=== PATIENT | female | born 1950 | race Caucasian/White ===

== ENCOUNTER 2022-06-21 14:36 | Inpatient (IN) | payer MEDICARE, SELFPAY ==
[2022-06-21] VITALS (7 sets, daily range): BP systolic 148–169; BP diastolic 80–100; PULSE 67–92; RESP 14–36; TEMP 36.6–37.1; O2SAT 95–99; BMI 30.9; BMI 30.2
--- NOTE | 2022-06-21 15:10 | CT_ITS ---
STUDY: CT HEAD STROKE PROTOCOL W/O CONTRAST INJECTION REASON FOR EXAM: Female, 71 years old. Neuro deficit, acute, stroke suspected RADIATION DOSAGE (If Supplied By Facility): CTDIvol = ( 44.99 ) mGy, DLP = ( 711.75 ) mGycm TECHNIQUE: Transaxial CT imaging of the brain was performed without administration of intravenous contrast material. Individualized dose optimization techniques were used for this CT. COMPARISON: No relevant priors. FINDINGS: Normal soft tissue structures. Normal calvarium. There is mild cerebral atrophy with widening of the extra-axial spaces and ventricular dilatation. Focal area of decreased attenuation in the posterior medial aspect of the right occipital lobe suggestive of acute ischemic change. Normal basal ganglia and thalami. Normal brainstem. Normal cerebellum. There is no intracranial hemorrhage. There are no findings of an acute ischemic infarction. Atherosclerotic calcification of the cavernous portions of the internal carotid arteries bilaterally. Normal visualized paranasal sinuses. ASPECT score: 10 CT/STROKE Brain/Head without Cont IMPRESSION: Focal area of decreased attenuation in the posterior medial segment of the right occipital lobe. N.B. : The above Results were Read Back by Zachariah Kaye MD to [facility] and understanding confirmed on 06/21/2022 15:42:53 (ET). Electronically Signed: Zachariah Kaye MD at 15:44 EST ,
--- NOTE | 2022-06-21 15:12 | EX.ED.UPPERE ---
HPI History of Present Illness Chief Complaint: Upper Extremity Injury Detail of Chief Complaint: numbness LUE and difficulty walking Informant: patient and family Limited: dementia and other (Patient is not able to read) Occured/Mechanism Comment: Stroke like symptoms Onset/Context/Timing Onset: Hours Context: Sudden Onset Timing: Intermittent Quality of Pain: - (nunbness left side face and LUE) Location: Left Current Severity: Mild Maximum Severity: Moderate Worsened by: Nothng Relieved by: Nothing Associated Symptoms Associated Symptoms: Positive for Parasthesia and Weakness Narrative Narrative: Patient is 71 year old women who has a cognitive impairment and not able to read. Patient denies trauma. Her CC is numbness left side of her face and LUE. She reportedly had weakness LLE and Dragging her leg. Tetanus Immunization: Unknown Prior similar symptoms: No Recent Illness/Hospitalization: No PFSH PFS Medical History (Updated 06/21/22 @ 15:[address] Pj Doyle MD) GERD (gastroesophageal reflux disease) Hypertension Lupus Obesity Medical History unable to obtain unable to obtain Home Medications cholecalciferol (vitamin D3) 25 mcg (1,000 unit) capsule (Vitamin D3) 1,000 unit PO DAILY 12/05/16 [History Last Taken Unknown] dextromethorphan polistirex 30 mg/5 mL oral susp ext.release 12hr (Delsym 12 hour) 60 mg PO BID 12/05/16 [History Last Taken Unknown] diphenhydramine HCl 25 mg capsule (Banophen) 25 mg PO TID PRN ALLERGY ##15 12/05/16 [Rx Last Taken Unknown] famotidine 20 mg tablet 20 mg PO BID ALLERGIC ##10 12/05/16 [Rx Last Taken Unknown] flaxseed oil 1,000 mg capsule ([place]-3 Flaxseed Oil) 1,000 mg PO DAILY 12/05/16 [History Last Taken Unknown] fluticasone propionate 50 mcg/actuation nasal spray,suspension 2 spray DAILY 12/05/16 [History Last Taken Unknown] losartan 25 mg tablet 25 mg PO DAILY 12/05/16 [History Last Taken Unknown] minocycline 50 mg capsule 50 mg PO DAILY PRN ROSACEA 12/05/16 [History Last Taken Unknown] multivitamin,fo-etcb-jfkjgmbo 27 mg-0.4 mg tablet (Therems-M) 1 tab PO DAILY 12/05/16 [History Last Taken Unknown] omega-3 acid ethyl esters 1 gram capsule 1 g PO BID 12/05/16 [History Last Taken Unknown] Allergy/AdvReac Type Severity Reaction Status Date / Time pneumococcal vaccine Allergy REDNESS, Verified 12/05/16 18:57 [From Pneumovax 23] PAIN, AND SWELLING Family History unable to obtain unable to obtain Surgical History (Updated 06/21/22 @ 15:[address] Yolande Miranda MD) Hx of cholecystectomy Surgical History unable to obtain unable to obtain Social History (Updated 06/21/22 @ 15:[address] Yolande Miranda MD) household members: family Smoking Status: Never smoker alcohol intake: never substance use type: does not use ROS ROS ED Review of Systems ROS Unobtainable: due to mental status Neurologic Neurologic: Reports paresthesias, weakness and other Details: difficulty walking. EXAM Physical Exam Const Vital Signs: 06/21/22 14:38 Temperature 98.1 F Temperature Source Temporal Pulse Rate 92 Respiratory Rate 14 Blood Pressure 162/97 H Blood Pressure Mean 118 Pulse Ox 99 Oxygen Delivery Method Room Air Positive well nourished, well developed and obese General Appearance ED: well developed and NAD Nutritional Appearance: obese HEENT Reports moist mucous membranes normocephalic and atraumatic Eyes PERRL and EOMs intact bilaterally Neck full ROM and supple Resp normal respiratory effort and clear to auscultation bilaterally Cardio regular rate, regular rhythm, S1 normal heart sound, S2 normal heart sound and no murmurs GI non-tender, non-distended and no masses Palpation: soft Back/Spine no CVA tenderness Cervical Spine: Negative for cervical spine tenderness Thoracic Spine / Upper Back: Negative for thoracic spinal tenderness Lumbar Spine / Lower Back: Negative for lumbar spinal tenderness Extremity normal to inspection and full ROM Neuro No oriented x3, No CN's II-XII intact bilaterally, moves all extremities, No no focal motor deficits and no sensory deficits noted Sensorium / Orientation: alert, oriented to person, oriented to place and oriented to time Motor Exam: Negative for strength 5/5 throughout Psych mental status grossly normal Skin General Skin Exam: Negative for petechiae Lesions: no lesions Rashes: no rashes MDM MDM MDM Narrative Medical decision making narrative: Patient with TIA/Stroke like symptoms. NIH if 3, Does not know age, slight facial droop left and weakness LLE. Concern and has visual field defect because when she read the chart she would turn her head to the left and look towards the right to determine what was occurring in the field and for her to identify the objects. Attempt at confrontation was difficult because patient would look to the side my finger was on. She did this more when my fingers were on the left side. My belief is she has a left homonymous hemianopsia. Stroke order set was initiated. I received a call from the radiologist that reveals that she has an inferior posterior medial right occipital stroke. In light of this information the hospitalist been paged for admission. Lab Data Attestation: I reviewed the patient's lab results. Lab results narrative: CBC, BMP, coags are unremarkable. Radiography Diagnostic Testin view chest x-ray was independently reviewed and interpreted by me at 1550 as negative. Cardiac silhouette size normal. Lung parenchyma normal. Perihilar region normal. Osseous structures are unremarkable. EKG Initial EKG: Attestation: I personally reviewed and interpreted this EKG as follows: Interpretation: Sinus Rhythm (Ventricle rate is 84. [place] intervals 172 ms. QS duration 84 ms. QT durations are 70 ms. [place] is to the left. There is a left anterior fascicular block noted.) Discharge Plan Dx/Rx/DC Orders Clinical Impression: Left homonymous hemianopsia, Transient weakness of left lower extremity, TIA (transient ischemic attack), History of hypertension Disposition Disposition: Acute Care Hospital [facility] Capacity Capacity Assessment Tool Can the patient make a choice & communicate that choice?: No Can the patient understand benefits, risks and alternatives?: Unable to Determine Can the patient make a logical, rational choice?: Unable to Determine Is the choice the patient makes consistent w/ their values?: Comment (Patient is willing to stay. She her sister is confused why she needs to be admitted.) Is there an impending, emergent risk to the patient?: Yes Does the patient have an Advance Directive?: No Is there a Surrogate Available?: Yes (Surrogate does not understand and comprehend need for admission) i.e. HCPOA: No i.e. close relative (spouse, child, parent, sibling)?: Yes (Lives with her sister who in my opinion does not have capacity either)
[2022-06-21 15:23] LABS: Absolute Lymphocyte Count 1.31 X10^3/uL (0.83-4.51); Absolute Neutrophil Count 3.5 X10^3/uL (2.0-7.7); Basophil# 0.04 X10^3/uL; Basophil% 0.7 % (0-1); Eosinophil# 0.04 X10^3/uL; Eosinophils% 0.7 % (0-5); Hematocrit 41.8 % (37-47); Hemoglobin 14.1 g/dL (12.0-15.0); Lymphocyte # 1.31 X10^3/ul (0.83-4.51); Lymphocyte % 23.8 % (19-41); Mean Corp Hgb Conc 33.7 g/dL (32-36); Mean Corpuscular Volume 88.9 fL (81-99); Mean Platelet Vol. 10.2 fl (6.2-12.0); Monocyte# 0.61 X10^3/uL; Monocyte% 11.1 % (0-10); NRBC Flagged by Analyzer 0 % (0-5); Neutrophil # 3.46 X10^3/uL (2.7-7.7); Platelet Count 192 K/mm3 (150-450); RBC Distribution Width CV 12.7 % (11.6-14.6); RBC Distribution Width SD 41.4 fl (35.1-43.9); White Blood Count 5.5 K/mm3 (4.4-11.0)
[2022-06-21 15:32] LABS: Prothrombin Time (Protime)PT. 12.8 SECONDS (11.7-14.9)
[2022-06-21 15:33] LABS: Partial Thromboplast Time 26.3 Seconds (24.1-36.2)
[2022-06-21 15:35] LABS: Bedside Glucose 102 mg/dL (74-106)
--- NOTE | 2022-06-21 15:35 | RAD_ITS ---
STUDY: X-RAY CHEST REASON FOR EXAM: Female, 71 years old. Neuro deficit, acute, stroke suspected TECHNIQUE: Single AP portable view of the chest. COMPARISON: None. FINDINGS: EKG electrodes are seen. The lungs are clear and expanded. There is no demonstrated pleural abnormality. Normal size heart. Normal mediastinum and agustín. Normal visualized pulmonary arteries. There is atherosclerotic tortuosity of the aortic arch and descending thoracic aorta. Normal visualized thoracic spine. Normal visualized ribs, clavicles, and shoulders. There is no demonstrated abnormality of the visualized soft tissue structures of the upper abdomen. RAD/Chest 1 View IMPRESSION: No acute abnormality is seen. Electronically Signed: Zachariah Kaye MD at 15:45 EST ,
[2022-06-21 15:42] LABS: Anion Gap 7 (5-15); BUN 17 mg/dL (7-18); BUN/Creat Ratio 22.4 RATIO (10-20); Calcium,Total 9.5 mg/dL (8.5-10.1); Chloride 106 mmol/L (98-107); Creatinine, Serum 0.76 mg/dL (0.55-1.02); EST Glomerular Filtration Rate 80 mL/min (>60); Est Glom Filt Rate - Afr Amer 97 mL/min (>60); Glucose 117 mg/dL (74-106); Sodium Level 137 mmol/L (136-145); Troponin-I HS 7 pg/mL (3.0-54.0)
--- NOTE | 2022-06-21 15:55 | HP.PCM.HOS_ITS ---
HPI - General General Date of Admission: 06/21/22 Date of Service: 06/21/22 Chief Complaint: L sided weakness, paresthesias. HPI Narrative The patient is a 71 y/o F w/ PMHx: GERD, HTN, SLE, Obesity, Cognitive impairment with questionable underlying dementia, inability to read of note who presents to the [facility] ED on 06/21/22 with history of onset of left-sided numbness including her face and left upper extremity as well as left lower extremity weakness reportedly dragging her leg starting at 11:30 am per report but family and patient are both poor historians. Initial NIH stroke scale per ED physician report is a 3 as she does not know her age and demonstrates a slight facial left-sided droop as well as left lower extremity weakness. Work-up in the ED included T98.1, heart rate 92, BP 162/97, respiratory rate 14, 99% on room air, CBC with WC 5.5, hemoglobin 14.1, platelet 192 without marked shift, unremarkable coags, BMP unremarkable aside glucose 117, troponin 7, CT brain with an area of focal decreased attenuation in the posterior medial segment of the right occipital lobe, chest x-ray with no acute cardiopulmonary findings, EKG SR. [facility] Medical History (Updated 06/21/22 @ 16:[address] Yolande Miranda MD) Allergic rhinitis GERD (gastroesophageal reflux disease) Hypertension Lupus Obesity Medical History unable to obtain Home Medications cholecalciferol (vitamin D3) 25 mcg (1,000 unit) capsule (Vitamin D3) 1,000 unit PO DAILY 12/05/16 [History Last Taken Unknown] dextromethorphan polistirex 30 mg/5 mL oral susp ext.release 12hr (Delsym 12 hour) 60 mg PO BID 12/05/16 [History Last Taken Unknown] diphenhydramine HCl 25 mg capsule (Banophen) 25 mg PO TID PRN ALLERGY ##15 12/05/16 [Rx Last Taken Unknown] famotidine 20 mg tablet 20 mg PO BID ALLERGIC ##10 12/05/16 [Rx Last Taken Unknown] flaxseed oil 1,000 mg capsule ([place]-3 Flaxseed Oil) 1,000 mg PO DAILY 12/05/16 [History Last Taken Unknown] fluticasone propionate 50 mcg/actuation nasal spray,suspension 2 spray DAILY 12/05/16 [History Last Taken Unknown] losartan 25 mg tablet 25 mg PO DAILY 12/05/16 [History Last Taken Unknown] minocycline 50 mg capsule 50 mg PO DAILY PRN ROSACEA 12/05/16 [History Last Taken Unknown] multivitamin,om-hbyd-jnjrlroy 27 mg-0.4 mg tablet (Therems-M) 1 tab PO DAILY 12/05/16 [History Last Taken Unknown] omega-3 acid ethyl esters 1 gram capsule 1 g PO BID 12/05/16 [History Last Taken Unknown] Allergy/AdvReac Type Severity Reaction Status Date / Time pneumococcal vaccine Allergy REDNESS, Verified 12/05/16 18:57 [From Pneumovax 23] PAIN, AND SWELLING Family History (Updated 06/21/22 @ 16:[address] Yolande Miranda MD) Mother Diabetes Father Heart disease Brother CVA (cerebral vascular accident) CVA age 77. Family History unable to obtain Surgical History (Updated 06/21/22 @ 15:[address] Yolande Miranda MD) Hx of cholecystectomy Surgical History unable to obtain Social History (Updated 06/21/22 @ 15:[address] Yolande Miranda MD) household members: family Smoking Status: Never smoker alcohol intake: never substance use type: does not use ROS ROS Narrative Admission Review of Systems: CONSTITUTIONAL: No weight loss, fever, chills, + weakness or fatigue. HEENT: Eyes: + Suspected left-sided homonymous hemianopsia, chronic inability to read from youth. Ears, Nose, Throat: No hearing loss, sneezing, congestion, runny nose or sore throat. SKIN: No rash or itching, lesions, wounds. CARDIOVASCULAR: No chest pain, chest pressure or chest discomfort, palpitations, edema, orthopnea, syncopal events. RESPIRATORY: No shortness of breath, cough or sputum, wheezing, hemoptysis. GASTROINTESTINAL: No anorexia, nausea, vomiting or diarrhea, abdominal pain, melena, BRBPR. GENITOURINARY: No dysuria, frequency, urgency or retention. NEUROLOGICAL: + Left-sided facial paresthesias, left upper extremity paresthesias, left lower extremity weakness, suspected left-sided homonymous hemianopsia, no headache, dizziness, syncope, paralysis, ataxia, change in bowel or bladder control, seizure. MUSCULOSKELETAL: No muscle, back pain, joint pain or stiffness. HEMATOLOGIC: No anemia, bleeding or bruising. LYMPHATICS: No enlarged nodes. No history of splenectomy. PSYCHIATRIC: + history of depression or anxiety. ENDOCRINOLOGIC: No reports of sweating, cold or heat intolerance. No polyuria or polydipsia. ALLERGIES: + history of rhinitis. Vital Signs Vital Signs Vital Signs: 06/21/22 14:38 06/21/22 15:18 06/21/22 15:18 Temperature 98.1 F Temperature Source Temporal Pulse Rate 92 83 Respiratory Rate 14 36 H Blood Pressure 162/97 H 162/95 H Blood Pressure Mean 118 117 Pulse Ox 99 95 Oxygen Delivery Method Room Air Room Air Room Air Weight Weight: 191 lb 11.2 oz Body Mass Index (BMI) 30.9 Physical Exam Narrative Physical Examination: General: Awake, alert, oriented to self, place and some events, chronic cognitive impairment, cooperative, seated upright in the ED bed in no apparent distress. Skin: Normal color, normal turgor, no icterus, no cyanosis. HEENT: AT/NC, PERRLA, MMM, no carotid bruits or JVD noted, difficulty with EO M/moves head almost to support, suspect left-sided homonymous hemianopsia. Lungs: CTA bilaterally, moderate effort, mild decrease BL bases, no rales, ronchi or wheezing. Heart: Regular rate and rhythm; no gallop, rub audible. Abdomen: Soft, obese, NTTP, ND, mildly hyperactive BS, no HSM. Extremities: No cyanosis, no clubbing, mild BL ankle nonpitting edema. Neurological: Patient awake, alert, oriented as noted, cognitive function decreased baseline with underlying cognitive impairment but do suspect she is near her baseline at least from discussion with family; pupils equally reactive to light and accommodation, cranial nerves grossly normal except difficulty with EOM/moves head almost to support, suspect left-sided homonymous hemianopsia, in addition patient reported improvement of prior reported initial paresthesias to the face and left upper extremity, moving all extremities except still has ongoing left lower extremity weakness, L sided difficulties with FTN and HTS, R side intact, equivocal babinski. Psychiatric: Affect appears normal, no acute evidence of depressive or anxiety feelings. Results Lab / Micro Data Result Diagrams: 06/21/22 15:10 06/21/22 15:10 Labs: Laboratory Results - last 24 hr 06/21/22 15:10: WBC 5.5, RBC 4.70, Hgb 14.1, Hct 41.8, MCV 88.9, MCH 30.0, MCHC 33.7, RDW Std Deviation 41.4, RDW Coeff of Mayra 12.7, Plt Count 192, MPV 10.2, Immature Gran % (Auto) 0.700, Neut % (Auto) 63.0, Lymph % (Auto) 23.8, [place] % (Auto) 11.1 H, Eos % (Auto) 0.7, Baso % (Auto) 0.7, Absolute Neuts (auto) 3.5, Absolute Lymphs (auto) 1.31, Nucleated RBC % 0 06/21/22 15:10: PT 12.8, INR 1.0, APTT 26.3 06/21/22 15:10: Sodium 137, Potassium 4.0, Chloride 106, Carbon Dioxide 24.0, Anion Gap 7, BUN 17, Creatinine 0.76, Estim Creat Clear Calc 48.30, Est GFR (MDRD) Af Amer 97, Est GFR (MDRD) Non-Af 80, BUN/Creatinine Ratio 22.4 H, Glucose 117 H, Calcium 9.5, Troponin I High Sens 7 06/21/22 15:16: POC Glucose [address] 06/21/22 15:10 IMPRESSION: Focal area of decreased attenuation in the posterior medial segment of the right occipital lobe. N.B. : The above Results were Read Back by Zachariah Kaye MD to [facility] and understanding confirmed on 06/21/2022 15:42:53 (ET). Electronically Signed: Zachariah Kaye MD at 15:44 EST , ADDENDUM: 06/21/22 1553 IMPRESSION: Focal area of decreased attenuation in the posterior medial segment of the right occipital lobe. N.B. : The above Results were Read Back by Zachariah Kaye MD to [facility] and understanding confirmed on 06/21/2022 15:42:53 (ET). Electronically Signed: Zachariah Kaye MD at 15:44 EST , Chest X-Ray 06/21/22 15:35 IMPRESSION: No acute abnormality is seen. Electronically Signed: Zachariah Kaye MD at 15:45 EST , Assessment & Plan Assessment/Plan (1) CVA (cerebral vascular accident): PLAN: Plan The patient is a 71 y/o F w/ PMHx: GERD, HTN, SLE, Obesity, Cognitive impairment with questionable underlying dementia, inability to read of note who presents to the [facility] ED on 06/21/22 with history of onset of left-sided numbness including her face and left upper extremity as well as left lower extremity weakness reportedly dragging her leg. Initial NIH stroke scale per ED physician report is a 3 as she does not know her age and demonstrates a slight facial left-sided droop as well as left lower extremity weakness. #1. Left-sided paresthesias, L suspected homonymous hemianopsia, LLE weakness with CT changes with Acute posterior medial segment right occipital lobe CVA: Will admit to PCU, will obtain MRI Brain, CTA Head and Neck, ECHO, PT/OT/Speech/Nutrition evaluation per protocol. Will allow permissive HTN, maintain on asa, add at least moderate dose statin w/ AM FLP, fall precautions. Magnesium, TSH, FLP, hemoglobin A1c requested. Once further imaging and work-up is obtained may consider neurology evaluation. #2. Cognitive impairment with questionable underlying dementia, unclear type with unclear behavioral disturbance history: Reported history of chronic impairment, inability to read of note, unclear extent to the outpatient evaluation, will maintain on fall and aspiration precautions, therapies as well as case management consulted as noted above. #3. Hypertension: Given acute presentation #1 we will maintain permissive hypertension with as needed stroke protocol as needed agents. #4. Obesity: Weight loss and lifestyle changes encouraged. #5. SLE: From current list not on any chronic regimen, encourage continued outpatient follow-up with rheumatology. #6. GERD: We will continue patient on famotidine. #7. DVT prophylaxis: SCDs, lovenox. Charges/Coding Visit Charges Inpatient E&M: 89800 Init Hosp L3
--- NOTE | 2022-06-21 16:02 | CT_ITS ---
EXAM: CT ANGIOGRAPHY HEAD AND NECK WITH INTRAVENOUS CONTRAST CLINICAL INDICATION: Neuro deficit, acute, stroke suspected TECHNIQUE: [place] of [place]/head and neck CT angiography protocol performed with intravenous contrast. This CT exam was performed using one or more of the following dose reduction techniques: automated exposure control, adjustment of the mA and/or kV according to patient size, and/or use of iterative reconstruction technique. This report was created using [employer] report generation technology. MIP reconstructed images were created and reviewed. CONTRAST: IV 100mL [id number] COMPARISON: None. FINDINGS: HEAD: Mild atherosclerotic calcification of the cavernous carotid arteries without stenosis. RIGHT ANTERIOR CEREBRAL ARTERY: Unremarkable. No significant stenosis at the visualized segments. Anterior communicating artery is present. No aneurysm. RIGHT MIDDLE CEREBRAL ARTERY: Unremarkable. No significant stenosis at the visualized segments. No aneurysm. RIGHT POSTERIOR CEREBRAL ARTERY: High-grade stenosis at the junction of the P1 and P2 segments of the right posterior cerebral artery, with reconstitution of the T3 segment. No aneurysm. RIGHT INTRACRANIAL INTERNAL CAROTID ARTERY: Unremarkable. No significant stenosis. No dissection or occlusion. RIGHT INTRACRANIAL VERTEBRAL ARTERY: Unremarkable. No significant stenosis. No dissection or occlusion. Posterior communicating arteries are not visualized. LEFT ANTERIOR CEREBRAL ARTERY: Unremarkable. No significant stenosis at the visualized segments. No aneurysm. LEFT MIDDLE CEREBRAL ARTERY: Unremarkable. No significant stenosis at the visualized segments. No aneurysm. LEFT POSTERIOR CEREBRAL ARTERY: Unremarkable. No occlusion or significant stenosis. No aneurysm. LEFT INTRACRANIAL INTERNAL CAROTID ARTERY: Unremarkable. No significant stenosis. No dissection or occlusion. LEFT INTRACRANIAL VERTEBRAL ARTERY: Unremarkable. No significant stenosis. No dissection or occlusion. 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 No dissection. OTHER VASCULATURE: No vascular malformation. NECK: RIGHT COMMON CAROTID ARTERY: Unremarkable. No significant stenosis. No dissection or occlusion. RIGHT EXTRACRANIAL INTERNAL CAROTID ARTERY: Unremarkable. No significant stenosis. No dissection or occlusion. RIGHT EXTERNAL CAROTID ARTERY: Unremarkable. No occlusion. RIGHT EXTRACRANIAL VERTEBRAL ARTERY: Unremarkable. No significant stenosis. No dissection or occlusion. LEFT COMMON CAROTID ARTERY: Unremarkable. No significant stenosis. No dissection or occlusion. LEFT EXTRACRANIAL INTERNAL CAROTID ARTERY: Unremarkable. No significant stenosis. No dissection or occlusion. LEFT EXTERNAL CAROTID ARTERY: Unremarkable. No occlusion. LEFT EXTRACRANIAL VERTEBRAL ARTERY: Unremarkable. No significant stenosis. No dissection or occlusion. GREAT VESSELS OF AORTIC ARCH: Unremarkable as visualized. Normal anatomy, patent. LUNG APICES: Unremarkable as visualized. HEAD and NECK: BONES/JOINTS: Unremarkable. No discrete lytic or blastic abnormalities. SOFT TISSUES: Unremarkable. CAROTID STENOSIS REFERENCE USING NASCET CRITERIA: % ICA stenosis = (1 - narrowest ICA diameter/diameter of distal cervical ICA) x 100. Mild - <50% stenosis. Moderate - 50-69% stenosis. Severe - 70-94% stenosis. Near occlusion - 95-99% stenosis. Occluded - 100% stenosis. CT/STROKE CTA Head AND Neck W/Con IMPRESSION: High-grade stenosis of the P1-P2 segment of the right JOURNEYMAN PRESSMAN. 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 Unremarkable CTA of the neck. N.B. : The above Results were Read Back by Sanam Swartz MD to Yolande Miranda MD, and understanding confirmed on 06/21/2022 17:02:19 (ET). Electronically Signed: Sanam Swartz MD at 16:55 EST Reading Location ID and State: [id number] / Tel , Service support ,
[2022-06-21 16:28] LABS: Magnesium 2.3 mg/dL (1.6-2.6)
--- NOTE | 2022-06-21 16:52 | MRI_ITS ---
EXAM: MR HEAD WITHOUT INTRAVENOUS CONTRAST CLINICAL INDICATION: CVA TECHNIQUE: Multiplanar and multisequence MR images of the brain were obtained without intravenous contrast. This report was created using [employer] report generation technology. COMPARISON: CT head 06/21/2022. FINDINGS: BRAIN AND EXTRA-AXIAL SPACES: No intracranial mass, mass effect, or midline shift. No hemorrhage or hydrocephalus. Restricted diffusion in the right occipital lobe consistent with acute infarct. Trace T2 signal hyperintensity in the left frontal deep white matter are consistent with microvascular ischemia. Mild ventriculomegaly is commensurate with the degree of sulcal atrophy. Basal cisterns are unremarkable. SELLA: Pituitary gland is normal in height. AUDITORY SYSTEM: Unremarkable. BONES/JOINTS: Unremarkable. SINUSES: Unremarkable as visualized. Clear. MASTOID AIR CELLS: T2 hyperintensity in the right mastoid sinus. ORBITS: Unremarkable as visualized. VASCULATURE: Normal flow voids in the major intracranial circulation. MRI/Brain without Contrast IMPRESSION: Acute right occipital infarct, previously reported. Minimal chronic microvascular ischemic change. Chronic right mastoid sinusitis. Electronically Signed: Sanam Swartz MD at 19:18 EST Reading Location ID and State: [id number] / Tel , Service support ,
--- NOTE | 2022-06-21 16:52 | ECHOCS_ITS ---
Reason For Study: CVA Procedure This was a 2D Doppler, Color Flow transthoracic echocardiogram. The study was technically difficult. Contrast injection was performed. Exam performed portable in patient room. Left Ventricle Normal LV size. Left ventricular systolic function is normal. The estimated ejection fraction is 70 %. No evidence for diastolic dysfunction. No regional wall motion abnormalities noted. Right Ventricle Normal RV size. Normal systolic function. Atria Normal left atrium. Normal right atrium. No doppler evidence for ASD. Bubble contrast study negative for right to left interatrial shunt. Mitral Valve There is no mitral annular calcification. Normal mitral valve. Trivial mitral valve insufficiency. Tricuspid Valve Normal tricuspid valve. Mild to moderate (1-2+) eccentric tricuspid valve insufficiency. Right ventricular systolic pressure estimated to be 36 mmHg. Aortic Valve Trisinus/trileaflet aortic valve. Normal aortic valve. Mild (1+) aortic valve insufficiency. Pulmonic Valve The pulmonic valve is not well visualized. Great Vessels Normal sized aortic root. Pericardium/Pleural No pericardial effusion. Medication Diluted definity 1ml given slow IV push to enhance endocardial definition. Performed a rapid injection of agitated mix of 9 cc saline and 1cc air to assess for atrial septal defect. MMode/2D Measurements & Calculations LVIDd: 4.0 cm IVSd: 0.97 cm LVOT diam: 2.0 cm LVIDs: 2.2 cm LVPWd: 0.99 cm RVDd: 3.2 cm FS: 45.2 % LVOT area: 3.0 cm2 Ao root diam: 3.2 cm LAV(MOD-bp): 40.8 ml LA A4 area: 17.6 cm2 LA dimension: 3.4 cm LAV(MOD-bp) Indexed: 21.0 ml/m2 LAV(MOD-sp2): 28.0 ml LAV(MOD-sp4): 47.2 ml RA A4 area: 15.5 cm2 Time Measurements MV dec time: 0.19 sec Doppler Measurements & Calculations MV E max kash: 65.1 cm/sec Lat Peak E' Kash: 9.8 cm/sec Med Peak E' Kash: 7.9 cm/sec MV A max kash: 94.3 cm/sec E/E' lat: 6.7 E/E' med: 8.2 MV E/A: 0.69 MV V2 max: 116.3 cm/sec MV P1/2t max kash: 83.7 cm/sec Ao V2 max: 142.8 cm/sec MV max P.4 mmHg MV P1/2t: 73.1 msec Ao max P.2 mmHg MV V2 mean: 59.4 cm/sec MV dec slope: 335.4 cm/sec2 Ao V2 mean: 97.5 cm/sec MV mean P.7 mmHg Ao mean P.2 mmHg MV V2 VTI: 26.1 cm MVA(P1/2t): 3.0 cm2 Ao V2 VTI: 27.5 cm MVA(VTI): 3.0 cm2 AV (velocity ratio): 0.93 CASE(I,D): 2.8 cm2 CASE(V,D): 2.7 cm2 AI max kash: 414.5 cm/sec LV V1 max: 125.5 cm/sec SV(LVOT): 77.5 ml AI max P.8 mmHg LV V1 max P.3 mmHg AI dec slope: 292.7 cm/sec2 LV V1 mean P.4 mmHg AI P1/2t: 414.9 msec LV V1 mean: 86.8 cm/sec LV V1 VTI: 25.6 cm PA V2 max: 114.5 cm/sec TR max kash: 287.1 cm/sec PA V2 mean: 76.5 cm/sec TR max P.0 mmHg ECHO/Echo Complete W/ Contrast Interpretation Summary The study was technically difficult. Contrast injection was performed. Left ventricular systolic function is normal. The estimated ejection fraction is 70 %. Trivial mitral valve insufficiency. Mild to moderate (1-2+) eccentric tricuspid valve insufficiency. Mild (1+) aortic valve insufficiency. Right ventricular systolic pressure estimated to be 36 mmHg. No evidence for diastolic dysfunction. Bubble contrast study negative for right to left interatrial shunt. Ordering Physician: Yolande Miranda Referring Physician: Apurva Read M.D. Performed By: Carlos Han RCS
--- NOTE | 2022-06-21 17:02 | TELEMED_ITS ---
SOC Telemed has confirmed receipt of a request for visit. This document confirms receipt of the order initiating the consult. To find the results of the consultation, please view the patient's reports for the scanned Telemed Consult.
[2022-06-21] MEDS: Aspirin 325 MG Tablet PO (17:34)
[2022-06-21] MEDS: 0.9% Saline Lock 10 ML Syringe IV (18:55)
[2022-06-21] MEDS: 0.9% Normal Saline 1,000 ML 100 ML IV (18:55)
[2022-06-21] MEDS: Famotidine 20 MG Tablet PO (20:40)
[2022-06-21] MEDS: Atorvastatin Calcium 80 MG Tablet PO (20:40)
[2022-06-22] VITALS (12 sets, daily range): BP systolic 148–165; BP diastolic 63–93; PULSE 67–101; RESP 16; TEMP 36.4–37.4; O2SAT 94–97; BMI 30.2
[2022-06-22] MEDS: 0.9% Normal Saline 1,000 ML 100 ML IV ×2 (05:51→16:30)
[2022-06-22 06:23] LABS: Absolute Lymphocyte Count 1.24 X10^3/uL (0.83-4.51); Absolute Neutrophil Count 2.8 X10^3/uL (2.0-7.7); Basophil# 0.03 X10^3/uL; Basophil% 0.6 % (0-1); Eosinophil# 0.03 X10^3/uL; Eosinophils% 0.6 % (0-5); Hematocrit 38.9 % (37-47); Hemoglobin 13.1 g/dL (12.0-15.0); Lymphocyte # 1.24 X10^3/ul (0.83-4.51); Lymphocyte % 26.7 % (19-41); Mean Corp Hgb Conc 33.7 g/dL (32-36); Mean Corpuscular Hgb 29.9 pg (27.0-32.0); Mean Corpuscular Volume 88.8 fL (81-99); Mean Platelet Vol. 10.2 fl (6.2-12.0); Monocyte# 0.58 X10^3/uL; Monocyte% 12.5 % (0-10); NRBC Flagged by Analyzer 0 % (0-5); Neutrophil # 2.75 X10^3/uL (2.7-7.7); Neutrophil % 59.2 % (47-70); Platelet Count 173 K/mm3 (150-450); RBC Distribution Width CV 12.7 % (11.6-14.6); RBC Distribution Width SD 41.2 fl (35.1-43.9); Red Blood Count 4.38 M/mm3 (4.2-5.4); White Blood Count 4.7 K/mm3 (4.4-11.0)
[2022-06-22 07:06] LABS: ALB/GLOB Ratio 0.8 RATIO (0.9-2.4); AST(SGOT) 27 U/L (15-37); Alanine Aminotransfer ALT/SGPT 44 U/L (13-56); Alkaline Phosphatase 54 U/L (45-117); Anion Gap 5 (5-15); BUN 12 mg/dL (7-18); BUN/Creat Ratio 18.2 RATIO (10-20); Calcium,Total 8.2 mg/dL (8.5-10.1); Chloride 108 mmol/L (98-107); Cholesterol 206 mg/dL (200); Creatinine, Serum 0.66 mg/dL (0.55-1.02); EST Glomerular Filtration Rate 94 mL/min (>60); Est Glom Filt Rate - Afr Amer 113 mL/min (>60); Globulin 3.8 g/dL (2.2-4.2); Glucose 103 mg/dL (74-106); High Density Lipoprotein 57 mg/dL; Potassium 3.6 mmol/L (3.5-5.1); Protein, Total 6.8 g/dL (6.4-8.2); Sodium Level 139 mmol/L (136-145); Thyroid Stim Hormone (TSH) 2.33 uIU/mL (0.358-3.74); Triglycerides 170 mg/dL; Very Low Density Lipoprotein 34 mg/dL (5-40)
--- NOTE | 2022-06-22 07:21 | PCM.PN.HOSP ---
Subjective Subjective Follow-up for stroke. Patient feels improvement in left-sided peripheral vision and left upper extremity strength. History is difficult as patient has mild cognitive impairment and difficult comprehension. Objective Data Objective Data Vital Signs: Vital Signs Temp Pulse Resp BP Pulse Ox O2 Del Method 98.2 F 75 16 148/93 H 94 Room Air 06/22/22 04:30 06/22/22 04:30 06/22/22 04:30 06/22/22 04:30 06/22/22 04:30 06/22/22 00:42 Oxygen Delivery Method Room Air Weight: 192 lb 7.417 oz Body Mass Index (BMI) 30.2 Intake & Output: Intake and Output for Last 24 Hours 06/20/22 06/21/22 06/22/22 23:59 23:59 23:59 Intake Total 100 / 100 1000 / 1000 Balance 100 / 100 1000 / 1000 Lab / Micro Data Result Diagrams: 06/22/22 06:05 06/22/22 06:05 Labs: Laboratory Results - last 24 hr 06/21/22 15:10: WBC 5.5, RBC 4.70, Hgb 14.1, Hct 41.8, MCV 88.9, MCH 30.0, MCHC 33.7, RDW Std Deviation 41.4, RDW Coeff of Mayra 12.7, Plt Count 192, MPV 10.2, Immature Gran % (Auto) 0.700, Neut % (Auto) 63.0, Lymph % (Auto) 23.8, Weld % (Auto) 11.1 H, Eos % (Auto) 0.7, Baso % (Auto) 0.7, Absolute Neuts (auto) 3.5, Absolute Lymphs (auto) 1.31, Nucleated RBC % 0 06/21/22 15:10: PT 12.8, INR 1.0, APTT 26.3 06/21/22 15:10: Sodium 137, Potassium 4.0, Chloride 106, Carbon Dioxide 24.0, Anion Gap 7, BUN 17, Creatinine 0.76, Estim Creat Clear Calc 48.30, Est GFR (MDRD) Af Amer 97, Est GFR (MDRD) Non-Af 80, BUN/Creatinine Ratio 22.4 H, Glucose 117 H, Calcium 9.5, Troponin I High Sens 7 06/21/22 15:10: Magnesium 2.3 06/21/22 15:16: POC Glucose 102 06/22/22 06:05: WBC 4.7, RBC 4.38, Hgb 13.1, Hct 38.9, MCV 88.8, MCH 29.9, MCHC 33.7, RDW Std Deviation 41.2, RDW Coeff of Mayra 12.7, Plt Count 173, MPV 10.2, Immature Gran % (Auto) 0.400, Neut % (Auto) 59.2, Lymph % (Auto) 26.7, Weld % (Auto) 12.5 H, Eos % (Auto) 0.6, Baso % (Auto) 0.6, Absolute Neuts (auto) 2.8, Absolute Lymphs (auto) 1.24, Nucleated RBC % 0 06/22/22 06:05: Sodium 139, Potassium 3.6, Chloride 108 H, Carbon Dioxide 26.0, Anion Gap 5, BUN 12, Creatinine 0.66, Estim Creat Clear Calc 48.30, Est GFR (MDRD) Af Amer 113, Est GFR (MDRD) Non-Af 94, BUN/Creatinine Ratio 18.2, Glucose 103, Calcium 8.2 L, Total Bilirubin 0.80, AST 27, ALT 44, Alkaline Phosphatase 54, Total Protein 6.8, Albumin 3.0 L, Globulin 3.8, Albumin/Globulin Ratio 0.8 L, Triglycerides 170, Cholesterol 206 H, LDL Cholesterol 115, VLDL Cholesterol 34, HDL Cholesterol 57, TSH 2.33 Radiography Diagnostic Testing: Radiology Impression Brain CT 06/21/22 15:10 IMPRESSION: Focal area of decreased attenuation in the posterior medial segment of the right occipital lobe. N.B. : The above Results were Read Back by Zachariah Kaye MD to [facility] and understanding confirmed on 06/21/2022 15:42:53 (ET). Electronically Signed: Zachariah Kaye MD at 15:44 EST , ADDENDUM: 06/21/22 [id number] IMPRESSION: Focal area of decreased attenuation in the posterior medial segment of the right occipital lobe. N.B. : The above Results were Read Back by Zachariah Kaye MD to [facility] and understanding confirmed on 06/21/2022 15:42:53 (ET). Electronically Signed: Zachariah Kaye MD at 15:44 EST , Chest X-Ray 06/21/22 15:35 IMPRESSION: No acute abnormality is seen. 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 Unremarkable CTA of the neck. N.B. : The above Results were Read Back by Sanam Swartz MD to Yolande Miranda MD, and understanding confirmed on 06/21/2022 17:02:19 (ET). Electronically Signed: Sanam Swartz MD at 16:55 EST Reading Location ID and State: Phong Montoya MD Tel , Service support , Brain MRI 06/21/22 16:52 IMPRESSION: Acute right occipital infarct, previously reported. Minimal chronic microvascular ischemic change. Chronic right mastoid sinusitis. Electronically Signed: Sanam Swartz MD at 19:18 EST Reading Location ID and State: [id number] / Tel , Service support , Physical Exam Narrative General: Alert, Oriented x3, Cooperative HEENT: Atraumatic, PERRLA, EOMI, Normocephalic, mild diminished left peripheral visual impairment, improved since yesterday Oral: No Gingival or Mucosal Lesions/ Ulcerations Neck: Supple, No JVD, Negative Carotid Bruits Lungs: Air entry diminished in bilateral lung bases. No crepitation/rhonchi Cardiovascular: Sinus rhythm on quality assurance monitor body Normal S1, Normal S2, No murmurs Abdomen: Bowel Sounds Present, Soft, Non Tender, Non-Distended : No dysuria or acute LUTS. No renal angle tenderness. No suprapubic tenderness. Extremities: No edema, Capillary Refill Less than 3 Seconds Skin: No rashes, No breakdown Musculoskeletal: No Tenderness to Palpation of Joints or Extremities Neurological: No facial nerve palsy. Cranial nerves II-XII grossly intact, DTR 2+/4, muscle strength 4/5 in LUE and rest 5/5 Psych/Mental Status: Cognitive deficit/mild dementia. Assessment & Plan Assessment/Plan (1) CVA (cerebral vascular accident): PLAN: Plan 71-year-old female admitted for left-sided numbness including face and LUE and LLE weakness, reportedly dragging her leg at 11:30 AM by family. Initial NIH stroke scale 3. Patient has cognitive impairment/mild dementia. 1. Acute posterior medial segment of right occipital lobe ischemic stroke: Patient had left-sided weakness, paresthesia and left homonymous hemianopia: Patient is being admitted to PCU. In the morning exam it seems patient has improvement on the left hemianopia and LUE and LLE muscle power. CTA shows high-grade stenosis of the P1-P2 segment of the right [employer] but no LVO to merit catheter intervention. 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 MRI brain reviewed. Patient on permissive hypertension. A1c 5.7 suggestive of prediabetes. Glucose 108. Fasting profile TC 206, TG 170, LDL 115 and HDL 34, mildly elevated consistent with dyslipidemia. Patient on aspirin and high intensity statin. Plavix started. SOC consult reviewed and agree with the plan. ? #2.? Cognitive impairment with questionable underlying dementia, unclear type: Patient has difficulty in comprehension and follow command. Required repeated cues. Will need outpatient neurology follow-up. Patient does not have hallucination, delusion or significant behavioral abnormality. #3.? Hypertension: maintain permissive hypertension with as needed stroke protocol as needed agents. #4.? Obesity: Weight loss and lifestyle changes encouraged. #5.? SLE: From current list not on any chronic regimen, encourage continued outpatient follow-up with rheumatology. #6.? GERD: We will continue patient on famotidine. #7.? DVT prophylaxis: SCDs, lovenox. Total time of the visit including total time spent in counseling or coordination of care, (more than 50% of the total time, spent in obtaining medical information from nurses and other ancillary care providers,explaining to the patient about labs, imaging, diagnosis and management of active complex medical conditions), review of SOC neurology consult, review of labs and imaging is 40 minutes. Clinical Impression(s) from Imaging Studies Brain CT 06/21/22 15:10 IMPRESSION: Focal area of decreased attenuation in the posterior medial segment of the right occipital lobe. Electronically Signed: Zachariah Kaye MD at 15:44 EST , Chest X-Ray 06/21/22 15:35 IMPRESSION: No acute abnormality is seen. 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 Unremarkable CTA of the neck. Brain MRI 06/21/22 16:52 IMPRESSION: Acute right occipital infarct, previously reported. Minimal chronic microvascular ischemic change. Chronic right mastoid sinusitis. Charges/Coding Visit Charges Inpatient E&M: 28491 Subs Hosp L3
[2022-06-22 08:06] LABS: Hemoglobin A1c 5.7 % (3.8-5.6)
[2022-06-22] MEDS: Aspirin 81 MG TAB.CHEW PO (10:19)
[2022-06-22] MEDS: Enoxaparin 40 MG/0.4 ML Syringe SC (10:19)
[2022-06-22] MEDS: Famotidine 20 MG Tablet PO ×2 (10:20→22:37)
[2022-06-22] MEDS: Clopidogrel Bisulfate 75 MG Tablet PO (10:28)
--- NOTE | 2022-06-22 11:28 | CASEMGMT ---
ARCHANA met with patient to complete PHQ9 due to being positive for a stroke. Patient reports she is at the hospital as she had a stroke. Patient is diagnosed with Developmental Disabilities per staff. SW read the PHQ9 to patient. Often patient would repeat the last word of the question that this poem writer stated. Patient denied any thoughts of self harm and denied depression. Patient was bright and reactive. She said that this poem writer needed a pat on the back and gave a pat to this poem writer and smiled stating she has been giving them to everyone. ARCHANA updated PCU ARCHANA Suazo. Lulú BENÍTEZ
--- NOTE | 2022-06-22 11:50 | CASEMGMT ---
RN CM Face to Face with patient for initial transition planning/care coordination assessment. RN CM introduced self and role at [facility]. Patient lying in bed, alert and slightly confused, sister at bedside. Patient and sister willing to participate in assessment and is able to answer all questions appropriately. Care providers, pharmacy, and demographics verified. Patient wishes to discharge home, will monitor progress with therapy for needs at discharge. Patient and sister state they have no further needs or concerns at this time. CM to follow for discharge planning needs that may arise. PCP: Ilana Specialists: none Preferred Pharmacy: [facility] Insurance: [employer] Prescription Benefit: yes Living Will/HPOA: none LNOK: sister Living Arrangements: Patient lives with sister in a mobile home with 4 steps and railing to enter the home. Patient states she is independent for self care at home. Transportation: sister DME/HHC: Patient has shower chair and walker at home. No previous HHC or SNF. Disposition Plan: TBD, will monitor progress with therapy. Anticipate HHC vs SNF. Kaylah MENDIETA, RN, CM
--- NOTE | 2022-06-22 14:44 | CHAPLAIN ---
Type of Pastoral Visit _x__ Initial Visit ___ Follow-up Visit ___ On-call Visit ___ General Patient Visit ___ Spiritual Assessment ___ Family Conference ___ Bereavement ___ Rapid Response ___ Code Blue ___ Other (describe below) Pastoral Care Referral From _x__ Patient ___ Family ___ Nurse ___ Physician ___ Philosophy And Religion Instructor ___ Motor Boss ___ Other (describe below) Sacrament/Intervention __x_ Active listening ___ Anointing ___ Synagogue ___ Bereavement ___ Communion ___ Keely exploration ___ ___ Life review _x__ Prayer ___ Reconciliation ___ Sacrament of Sick ___ Supportive presence ___ Wedding ___ Other (describe below) Pastoral Comments patient lying down in bed and sister is seated near the bedside; pt states she is fine but also giggles about some questions; pt does not give much information in answers and appears to have a limited ability of language or advanced thinking; pt said that she remembers the TV show that is on; sister also states no concerns; both state that a prayer is acceptable and that they are not members of any organized holiness
--- NOTE | 2022-06-22 15:41 | CASEMGMT ---
This RN CM to room to discuss discharge plan with pt/family. Family states they were at bedside during therapy eval and are concerned about pt going home but also state that this is the first time pt has been up. CM to follow up with pt/family tomorrow to see how pt does with therapy again tomorrow. SStcuate THORPE CM
[2022-06-22] MEDS: Atorvastatin Calcium 80 MG Tablet PO (22:37)
[2022-06-23] VITALS (9 sets, daily range): BP systolic 143–157; BP diastolic 82–100; PULSE 78–112; RESP 16–18; TEMP 36.7–37.3; O2SAT 95–97; BMI 30.2
[2022-06-23] MEDS: 0.9% Normal Saline 1,000 ML 100 ML IV (02:04)
[2022-06-23] MEDS: Aspirin 81 MG TAB.CHEW PO (09:04)
[2022-06-23] MEDS: Famotidine 20 MG Tablet PO (09:04)
[2022-06-23] MEDS: Clopidogrel Bisulfate 75 MG Tablet PO (09:04)
[2022-06-23] MEDS: Enoxaparin 40 MG/0.4 ML Syringe SC (09:05)
[2022-06-23] MEDS: Acetaminophen 325 MG Tablet 650 MG PO (09:07)
--- NOTE | 2022-06-23 09:35 | NURSING ---
This RN updated pt's sister, Alba via phone.
--- NOTE | 2022-06-23 10:28 | PCM.DC ---
Discharge Instructions Diet Discharge Diet: Low fat / Low cholesterol and 2000 mg Sodium Diet Dressing / Incision Call your doctor if you observe: Fever of 101 or Higher, Coldness, Increased Pain, Numbness or Tingling, Change in Color, Inability to urinate, Inability to have a bowel movement, Using more than 1 pad per hour, Shortness of breath, Dizziness, Fainting spells, Swelling in the ankles, Chest pain, Prolonged hiccupping, Increased palpitations (irregular heartbeat), Calf discomfort and Uncontrolled pain Follow Up Care Test Results: Test results from this visit will be discussed in further detail at your follow-up appointment, if applicable. Discharge Plan Admission Admit Date/Time: 06/21/22 15:58 Attending Provider: Hayder Etienne Primary Care Provider: Apurva Read Consulting Providers: Yolande Miranda Discharge Orders/Prescriptions Prescriptions: New aspirin 81 mg Tablet,Chewable 81 mg PO BREAKFAST Qty: 90 0RF atorvastatin 80 mg Tablet 80 mg PO QHS Qty: 30 2RF sennosides-docusate sodium [Stool Softener-Stimulant Laxat] 8.6-50 mg Tablet 2 tab PO BID PRN PRN (Reason: Constipation) Qty: 0 0RF clopidogrel 75 mg Tablet 75 mg PO DAILY Qty: 21 0RF losartan 50 mg tablet 50 mg PO DAILY Qty: 30 1RF Rx Instructions: If systolic blood pressure less than 130, decrease losartan to 25 mg daily. Continued flaxseed oil [[place]-3 Flaxseed Oil] 1,000 MG capsule 1,000 mg PO DAILY minocycline 50 MG capsule 50 mg PO DAILY PRN (Reason: ROSACEA) fluticasone propionate 1 SPRAY spray,suspension 2 spray NASAL DAILY cholecalciferol (vitamin D3) [Vitamin D3] 1,000 UNIT capsule 1,000 unit PO DAILY omega-3 acid ethyl esters 1 GM capsule 1 g PO BID famotidine 20 MG tablet 20 mg PO BID Qty: 10 0RF metoprolol succinate 50 mg tablet extended release 24 hr PO Discontinued dextromethorphan polistirex [Delsym 12 hour] 30 MG/5 ML suspension,extended rel 12 hr 60 mg PO BID losartan 25 MG tablet 25 mg PO DAILY Therems-M 1 TABLET tablet 1 tab PO DAILY diphenhydramine HCl [Banophen] 25 MG capsule 25 mg PO TID PRN Qty: 15 0RF Referrals / Follow Up: Apurva Read MD [Primary Care Provider] - Within 2 Weeks Richie Fritz MD [Non-Staff -Ordering Privileges] - Within 2 Weeks (FOLLOW UP STROKE) Disposition Disposition (needs filled in before D/C Order can be placed): Home Health Service
--- NOTE | 2022-06-23 11:39 | PCM.DC.SUM ---
Providers Date of Admission: 06/21/22 Date of Discharge: 06/23/22 Primary Care Physician: Dr. Apurva Read MD Reason For Visit: CVA Diagnosis Discharge Diagnosis (1) CVA (cerebral vascular accident): Status: Acute Code(s): I63.9 - Cerebral infarction, unspecified Medications at Discharge Home Medications cholecalciferol (vitamin D3) 25 mcg (1,000 unit) capsule (Vitamin D3) 1,000 unit PO DAILY supplement 12/05/16 famotidine 20 mg tablet 20 mg PO BID ALLERGIC ##10 12/05/16 flaxseed oil 1,000 mg capsule (Ewing-3 Flaxseed Oil) 1,000 mg PO DAILY supplement 12/05/16 fluticasone propionate 50 mcg/actuation nasal spray,suspension 2 spray DAILY 12/05/16 minocycline 50 mg capsule 50 mg PO DAILY PRN ROSACEA 12/05/16 omega-3 acid ethyl esters 1 gram capsule 1 g PO BID supplement 12/05/16 metoprolol succinate 50 mg tablet,extended release 24 hr mg PO Check with primary doctor 06/21/22 aspirin 81 mg chewable tablet 81 mg PO BREAKFAST #90 tabs 06/23/22 atorvastatin 80 mg tablet 80 mg PO QHS #30 tabs 06/23/22 clopidogrel 75 mg tablet 75 mg PO DAILY #21 tabs 06/23/22 losartan 50 mg tablet 50 mg PO DAILY #30 tabs 06/23/22 sennosides 8.6 mg-docusate sodium 50 mg tablet (Stool Softener-Stimulant Laxative) 2 tab PO BID PRN PRN Constipation #0 tabs 06/23/22 Hospital Course Summary of Care Provided Hospital Course: 71-year-old female admitted for left-sided numbness including face and LUE and LLE weakness, reportedly dragging her leg at 11:30 AM by family. Initial NIH stroke scale 3. Patient has cognitive impairment/mild dementia. 1. Acute posterior medial segment of right occipital lobe ischemic stroke: Patient had left-sided weakness, paresthesia and left homonymous hemianopia: Patient is being admitted to PCU. In the morning exam it seems patient has improvement on the left hemianopia and LUE and LLE muscle power. CTA shows high-grade stenosis of the P1-P2 segment of the right WORKING SECOND HAND but no LVO to merit catheter intervention. 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 MRI brain reviewed. Patient on permissive hypertension. A1c 5.7 suggestive of prediabetes. Glucose 108. Fasting profile TC 206, TG 170, LDL 115 and HDL 34, mildly elevated consistent with dyslipidemia. Patient on aspirin and high intensity statin. Plavix started. SOC consult reviewed and agree with the plan. 06/23: surveillance system monitor shows sinus rhythm with PVCs. 2D echo EF 70% with bubble contrast study negative for [id number] interatrial shunt. Patient had PT OT and speech therapy. Patient did not meet criteria for SNF. Patient discharged home with home health. I talked to the patient's Sister Alba over the phone and try to convince her that her work-up is complete and is being discharged on aspirin Plavix, dual antiplatelet agent and high intensity statin. She needs to follow-up with neurologist as mentioned in discharge instruction. She will need outpatient rehab for mild disequilibrium. Muscle strength 5/5 at major joints. Her visual field also recovered. ? #2.? Cognitive impairment with questionable underlying dementia, unclear type: Patient has difficulty in comprehension and follow command. Required repeated cues. Will need outpatient neurology follow-up. Patient does not have hallucination, delusion or significant behavioral abnormality. #3.? Hypertension: maintain permissive hypertension with as needed stroke protocol as needed agents. 06/23: Losartan dose increased to 50 mg daily for better control of blood pressure. #4.? Obesity: Weight loss and lifestyle changes encouraged. #5.? SLE: From current list not on any chronic regimen, encourage continued outpatient follow-up with rheumatology. #6.? GERD:continue patient on famotidine. #7.? DVT prophylaxis: SCDs, lovenox. Discharge medication reconciliation done. Discharge follow-up instructions completed. Discharge process discussed with the patient and all questions were answered to patient's satisfaction. Total time spent, exact 35 minutes on discharge meds reconciliation, examination, coordination of care with nurses and ancillary staff, review of imaging and blood test and discussion with the patient on follow-up instructions. Clinical Impression(s) from Imaging Studies Brain CT 06/21/22 15:10 IMPRESSION: Focal area of decreased attenuation in the posterior medial segment of the right occipital lobe. Electronically Signed: Zachariah Kaye MD at 15:44 EST , Chest X-Ray 06/21/22 15:35 IMPRESSION: No acute abnormality is seen. Head/Neck CTA 06/21/22 16:02 IMPRESSION: High-grade stenosis of the P1-P2 segment of the right WORKING SECOND HAND. 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 Unremarkable CTA of the neck. Brain MRI 06/21/22 16:52 IMPRESSION: Acute right occipital infarct, previously reported. Minimal chronic microvascular ischemic change. Chronic right mastoid sinusitis. Physical Exam Narrative Seen and examined on the day of discharge. I also talked to the patient's sister over the phone. General: Alert, Oriented x3, Cooperative HEENT: Atraumatic, PERRLA, EOMI, Normocephalic, on visual confrontation test, no significant visual field impairment found. Oral: No Gingival or Mucosal Lesions/ Ulcerations. Oral mucosa moist. Neck: Supple, No JVD, Negative Carotid Bruits Lungs: Air entry diminished in bilateral lung bases. No crepitation/rhonchi Cardiovascular: Sinus rhythm on cardiac catheterization technician Normal S1, Normal S2, No murmurs Abdomen: Bowel Sounds Present, Soft, Non Tender, Non-Distended : No dysuria or acute LUTS. No renal angle tenderness. No suprapubic tenderness. Extremities: No edema, Capillary Refill Less than 3 Seconds Skin: No rashes, No breakdown Musculoskeletal: No Tenderness to Palpation of Joints or Extremities Psych: Flat affect. Neurological: No facial nerve palsy. Cranial nerves II-XII grossly intact, DTR 2+/4, muscle strength 5/5 at major joints. Weight / BMI Weight Weight: 188 lb 7.924 oz Body Mass Index (BMI) 30.2 ABG / Lab / Microbiology Data Result Diagrams: 06/22/22 06:05 06/22/22 06:05 D/C Instructions Discharge Diet: Low fat / Low cholesterol and 2000 mg Sodium Diet Call your doctor if you observe: Fever of 101 or Higher, Coldness, Increased Pain, Numbness or Tingling, Change in Color, Inability to urinate, Inability to have a bowel movement, Using more than 1 pad per hour, Shortness of breath, Dizziness, Fainting spells, Swelling in the ankles, Chest pain, Prolonged hiccupping, Increased palpitations (irregular heartbeat), Calf discomfort and Uncontrolled pain Meaningful Use Info Meaningful Use Diagnoses (Choose all that apply): Ischemic CVA CVA Therapy Assessed for PT,OT and/or ST?: Yes Ischemic Stroke Antithrombotic order at d/c?: Yes Dx of Atrial fib/flutter?: No Anticoagulant at discharge?: Yes Statins at discharge?: Yes Primary Dx Acute Ischemic CVA?: Yes IV tPA ordered during stay?: No Reason IV t-PA not ordered: Medical Contraindication Discharge Plan Admission Admit Date/Time: 06/21/22 15:58 Attending Provider: Hayder Etienne Primary Care Provider: Apurva Read Consulting Providers: Yolande Miranda Discharge Orders/Prescriptions Prescriptions: New aspirin 81 mg Tablet,Chewable 81 mg PO BREAKFAST Qty: 90 0RF atorvastatin 80 mg Tablet 80 mg PO QHS Qty: 30 2RF sennosides-docusate sodium [Stool Softener-Stimulant Laxat] 8.6-50 mg Tablet 2 tab PO BID PRN PRN (Reason: Constipation) Qty: 0 0RF clopidogrel 75 mg Tablet 75 mg PO DAILY Qty: 21 0RF losartan 50 mg tablet 50 mg PO DAILY Qty: 30 1RF Rx Instructions: If systolic blood pressure less than 130, decrease losartan to 25 mg daily. Continued flaxseed oil [Ewing-3 Flaxseed Oil] 1,000 MG capsule 1,000 mg PO DAILY minocycline 50 MG capsule 50 mg PO DAILY PRN (Reason: ROSACEA) fluticasone propionate 1 SPRAY spray,suspension 2 spray NASAL DAILY cholecalciferol (vitamin D3) [Vitamin D3] 1,000 UNIT capsule 1,000 unit PO DAILY omega-3 acid ethyl esters 1 GM capsule 1 g PO BID famotidine 20 MG tablet 20 mg PO BID Qty: 10 0RF metoprolol succinate 50 mg tablet extended release 24 hr PO Discontinued dextromethorphan polistirex [Delsym 12 hour] 30 MG/5 ML suspension,extended rel 12 hr 60 mg PO BID losartan 25 MG tablet 25 mg PO DAILY Therems-M 1 TABLET tablet 1 tab PO DAILY diphenhydramine HCl [Banophen] 25 MG capsule 25 mg PO TID PRN Qty: 15 0RF Referrals / Follow Up: Apurva Read MD [Primary Care Provider] - Within 2 Weeks Richie Fritz MD [Non-Staff -Ordering Privileges] - Within 2 Weeks (FOLLOW UP STROKE) Disposition Disposition (needs filled in before D/C Order can be placed): Home Health Service Charges/Coding Visit Charges Inpatient E&M: 82966 Disch Hosp
--- NOTE | 2022-06-23 14:38 | CASEMGMT ---
This ILA PRASAD to room to discuss d/c plan with family and family updated on therapy notes from today. Family declines OP and HHC therapy at this time and states they would just like to see how pt does at home with exercise sheets provided. Pt does have a walker available to use and family aware to keep an extra eye on pt until she gets steadier, voice understanding. Family lives with pt. Family aware that they can contact PCP once home if they decided they do want further therapy, voice understanding. Pt/family voice no further questions/concerns/needs. [place] ILA PRASAD
== END 2022-06-23 15:12 | disposition home health service (06) | DRG 65 ==
LOC: ED 15:52 → PCU 16:19
PROVIDERS: Admitting Provider Family Medicine; Emergency Provider Emergency Medicine; PCP Internal Medicine; Visit Provider Internal Medicine
DX: I63.9 Cerebral infarction, unspecified (principal); G81.94 Hemiplegia, unspecified affecting left nondominant side; M32.9 Systemic lupus erythematosus, unspecified; H53.462 Homonymous bilateral field defects, left side; K21.9 Gastro-esophageal reflux disease without esophagitis; I10 Essential (primary) hypertension; E78.5 Hyperlipidemia, unspecified; H53.47 Heteronymous bilateral field defects; F03.A0 Unspecified dementia, mild, without behavioral disturbance, psychotic disturbance, mood disturbance, and anxiety; R29.703 NIHSS score 3; E66.9 Obesity, unspecified; Z68.30 Body mass index [BMI] 30.0-30.9, adult
CPT/HCPCS: 36415; 70450; 70496; 70498; 70551; 71045; 80048; 80053; 80061; 82962; 83036; 83735; 84443; 84484; 85025; 85610; 85730; 92610; 93005; 93306; 97110; 97162; 97166; 97530; 97535; 97802; 99251; 99284; J7030; Q9957; Q9967; A4216; C8929; G0463